=== PATIENT | female | born 1940 | race Caucasian/White ===

== ENCOUNTER → 2020-12-03 | Outpatient (CLI) | payer MEDICARE, BC ==
--- NOTE | 2020-12-03 13:26 | CARD ---
MR#: [id number] Date of Study: 12/03/2020 Ordering Physician: ESPERANZA MARTINI, Referring Physician: ESPERANZA MARTINI, Tech: Pinky Juarez [facility] APPROVED REPORT EXAM: Two-dimensional and M-mode echocardiogram with Doppler and color Doppler. Other Information Quality : AverageHR: 76bpm Rhythm : NSR INDICATION Atrial Fibrillation RISK FACTORS Hypertension 2D DIMENSIONS RVDd4.3 (2.9-3.5cm)Left Atrium(2D)5.2 (1.6-4.0cm) IVSd0.9 (0.7-1.1cm)Aortic Root(2D)3.0 (2.0-3.7cm) LVDd5.9 (3.9-5.9cm)LVOT Diameter2.0 (1.8-2.4cm) PWd1.1 (0.7-1.1cm)LVDs4.2 (2.5-4.0cm) FS (%) 28.1 %SV91.5 ml Aortic Valve AoV Peak Kadeem.186.2cm/sAoV VTI40.8cm AO Peak GR.13.9mmHgLVOT Peak Kadeem.123.0cm/s AO Mean GR.6mmHgAVA (VMAX)1.99cm2 Mitral Valve MV E Hsrjavwa169.2cm/s Pulmonary Valve PV Peak Mwlmnpaw76.1cm/s Tricuspid Valve TR P. Zjlapxxw404py/sTR Peak Gr.40mmHg LEFT VENTRICLE The Left Ventricle is mildly dilated. There is normal left ventricular wall thickness. The systolic f unction is moderately impaired. Estimated ejection fraction is 35%. There is global hypokinesis of th e left ventricle. RIGHT VENTRICLE The right ventricle is normal size. There is normal right ventricular wall thickness. Systolic functi on is borderline reduced. ATRIA The left atrium is severely dilated. The right atrium is severely dilated. Possible PFO displayed wit h color doppler. AORTIC VALVE The aortic valve is normal in structure and function. Doppler and Color Flow revealed no significant aortic regurgitation. There is no significant aortic valvular stenosis. MITRAL VALVE The mitral valve is normal in structure and function. There is no evidence of mitral valve prolapse. There is no mitral valve stenosis. Doppler and Color-flow revealed moderate mitral regurgitation. TRICUSPID VALVE The tricuspid valve is normal in structure and function. Doppler and Color Flow revealed moderate tri cuspid regurgitation. Estimated PAP 55 mmHg. There is no tricuspid valve stenosis. PULMONIC VALVE The pulmonary valve is normal in structure and function. Doppler and Color Flow revealed trace pulmon ic valvular regurgitation. GREAT VESSELS The aortic root is normal in size. The ascending aorta is normal in size. The IVC is dilated and ryan apses <50% with inspiration. PERICARDIAL EFFUSION There is no evidence of significant pericardial effusion. Critical Notification Critical Value: No <Conclusion> The Left Ventricle is mildly dilated. The systolic function is moderately impaired. Estimated ejection fraction is 35%. There is global hypokinesis of the left ventricle. Possible PFO displayed with color doppler. Doppler and Color Flow revealed no significant aortic regurgitation. There is no significant aortic valvular stenosis. Doppler and Color-flow revealed moderate mitral regurgitation. Doppler and Color Flow revealed moderate tricuspid regurgitation. Estimated PAP 55 mmHg. Signed by : Dick Fritz MD Electronically Approved : 12/03/2020 13:26:24
== END ==
LOC: ECHO 08:42
PROVIDERS: ATTEND Internal Medicine
DX: I08.1 Rheumatic disorders of both mitral and tricuspid valves (principal); I48.91 Unspecified atrial fibrillation; I10 Essential (primary) hypertension; E78.00 Pure hypercholesterolemia, unspecified; M79.89 Other specified soft tissue disorders; Z79.01 Long term (current) use of anticoagulants
CPT/HCPCS: 93306

== ENCOUNTER 2021-04-07 07:20 | Inpatient (IN) | payer MEDICARE, BC ==
[2021-04-07] VITALS (29 sets, daily range): BP systolic 180–221; BP diastolic 58–105
[~2021-04-07] VITALS: Ht 175.3 cm; Wt 106.3 kg
[2021-04-07] MEDS ORDERED: LIDOCAINE 1% Multi-Dose 20 ML VIAL. ONE (07:47)
[2021-04-07] MEDS ORDERED: HEPARIN for ARTERIAL LINE 1,500 ML ONE (07:47)
[2021-04-07] MEDS ORDERED: IODIXANOL 320 MG/ML 100 ML VIAL. ONE (07:47)
[2021-04-07] MEDS ORDERED: GABA-585 PO (07:55)
[2021-04-07] MEDS ORDERED: POTA-116 PO (07:55)
[2021-04-07] MEDS ORDERED: UBID100C26 PO (07:55)
[2021-04-07] MEDS ORDERED: METF10007 PO (07:55)
[2021-04-07] MEDS ORDERED: DIGO250T3 PO (07:55)
[2021-04-07] MEDS ORDERED: LOSA100T14 PO (07:55)
[2021-04-07] MEDS ORDERED: DICL75TA PO (07:55)
[2021-04-07] MEDS ORDERED: LOVA40TA2 PO (07:55)
[2021-04-07] MEDS ORDERED: MAGN400T48 PO (07:55)
[2021-04-07] MEDS ORDERED: OMEG1CAP65 PO (07:55)
[2021-04-07] MEDS ORDERED: FURO20TA3 PO (07:55)
[2021-04-07] MEDS ORDERED: DILT120C2 PO (07:55)
[2021-04-07] MEDS ORDERED: VIT1CAPS12 PO (07:55)
[2021-04-07] MEDS ORDERED: CHOL500050 PO (07:55)
[2021-04-07] MEDS ORDERED: GLYB5TAB3 PO (07:55)
[2021-04-07] MEDS ORDERED: WARF6TAB47 PO ×2 (07:55→14:14)
[2021-04-07 07:57] LABS: HEMOGLOBIN 11.3 g/dL (12.0-15.5); RED BLOOD COUNT 3.6 x10^6/uL (3.50-5.40); RED CELL DISTRIBUTION WIDTH 17.2 % (11.5-14.5); WHITE BLOOD COUNT 4.7 x10^3/uL (4.0-11.0)
[2021-04-07 08:07] LABS: PROTHROMBIN TIME PATIENT 20.6 SEC (11.7-14.0)
[2021-04-07] MEDS ORDERED: HEPARIN for IV BOLUS 10,000 UNIT/10 ML VIAL. ONE (08:08)
[2021-04-07] MEDS ORDERED: MIDAZOLAM HCL/PF 2 MG/2 ML VIAL. ONE (08:08)
[2021-04-07] MEDS ORDERED: VERAPAMIL 5 MG/2 ML VIAL. ONE (08:08)
[2021-04-07] MEDS ORDERED: NITROGLYCERIN 200 MCG/2 ML SYRINGE FOR CATH/VASC LAB. ONE ×2 (08:08→09:30)
[2021-04-07] MEDS ORDERED: fentaNYL PF VIAL 100 MCG/2 ML VIAL ONE (08:08)
[2021-04-07] MEDS ORDERED: LIDOCAINE 1% PF 2 ML VIAL. INJ ONE (08:15)
[2021-04-07] MEDS ORDERED: NITROGLYCERIN 200 MCG/2 ML SYRINGE FOR CATH/VASC LAB. IART ONE (08:15)
[2021-04-07] MEDS ORDERED: fentaNYL PF VIAL 100 MCG/2 ML VIAL IV ONE (08:15)
[2021-04-07] MEDS ORDERED: HEPARIN for IV BOLUS 10,000 UNIT/10 ML VIAL. IART ONE (08:15)
[2021-04-07] MEDS ORDERED: VERAPAMIL 5 MG/2 ML VIAL. IART ONE (08:15)
[2021-04-07] MEDS ORDERED: IODIXANOL 320 MG/ML 100 ML VIAL. IART ONE (08:15)
[2021-04-07] MEDS ORDERED: MIDAZOLAM HCL/PF 2 MG/2 ML VIAL. IV ONE (08:15)
[2021-04-07] MEDS ORDERED: LIDOCAINE 1% Multi-Dose 20 ML VIAL. INJ ONE (08:15)
[2021-04-07 08:18] LABS: CALCIUM 9.3 mg/dL (8.5-10.1); CREATININE 1.1 mg/dL (0.6-1.0); POTASSIUM 4.2 mmol/L (3.5-5.1)
[2021-04-07] MEDS ORDERED: CONTRAST GIVEN. MC PRN (08:30)
--- NOTE | 2021-04-07 09:06 | PDOC ---
MODERATE SEDATION ASSESSMENT RISKS/ALTERNATIVES Risks/Alternatives Risks and alternatives of this type of sedation and procedure discussed with: RISK/ALTERNATIVES: Patient H & P ON CHART H & P H & P on chart and reviewed for co-morbid conditions and appropriate labs. H&P ON CHART: Yes STATUS PREG STATUS ASSESSED: N/A MEDS/ALLERGIES REVIEWED Meds/Allergies Reviewed Medications and Allergies including time and route of recently administered narcotics and sedatives. MEDS/ALLERGIES REVIEWED: No ASA RATING ASA RATING: II AIRWAY ASSESSMENT Airway Assessment Airway patency, oral function limitations, presence of caps, crowns, dentures, partials, and ability to extend neck assessed. AIRWAY ASSESSMENT: Yes MALLAMPATI SCORE MALLAMPATI SCORE: II PRE-SEDATION ASSESSMENT PRE-SEDATION ASSESSMENT: Yes YESSI MACHUCA MD Apr 07, 2021 09:06
[2021-04-07] MEDS ORDERED: LABETALOL 20 MG/4 ML DISP.SYRIN. IVP ONE ×2 (09:55→10:00)
[2021-04-07] MEDS ORDERED: FUROSEMIDE 100 MG/10 ML VIAL. ONE (09:55)
[2021-04-07] MEDS ORDERED: FUROSEMIDE 40 MG/4 ML VIAL. IVP ONE (10:00)
--- NOTE | 2021-04-07 10:29 | CARD ---
MR#: [id number] Date of Study: 04/07/2021 Ordering Physician: YESSI MACHUCA, Referring Physician: YESSI MACHUCA, Tech: RT Carmine(R)() APPROVED REPORT Technologist: RT Carmine(R)() Nurse: Elvira Main RN Procedure(s) performed: MODERATE SEDATION TIME: 60 MINUTES FLUORO TIME: 8.7 MIN DOSE: 72.2 GYCM2 CONTRAST: 94CC VISI Ultrasound guided right groin common femoral vein access RHC, LHC, Coronary angiography iFR of the LM/LAD [facility] Clinical Frailty Scale [facility] Clinical Frailty Scale: Moderately Frail Heart Failure Heart Failure: Yes If Yes, Newly Diagnosed: Yes If Yes, HF Type: Diastolic Systolic If Yes, NYHA Class: Class III CASE TECHNIQUE IV conscious sedation was used throughout procedure with appropriate monitoring and was performed in the presence of a registered nurse who was an independent trained observer other than the physician p erforming the procedure. During this case, Fluoroscopy and low osmolar contrast were used for imaging . Specimen(s) Removed: N/A Estimated Blood loss: 30 cc's. PROCEDURE NARRATIVE Clinical information: 80-year-old woman who comes into the Docent Coordinator for a planned right and left heart catheterization in t he setting of new onset systolic heart failure. Patient has pertinent medical history including atri al fibrillation, left bundle branch block, hypertension and morbid obesity. Procedure details: After appropriate informed consent the right wrist and right groin were prepped and draped in usual s terile fashion. Under 1% lidocaine local anesthesia a 6 Namibian sheath was placed in the right radial artery via the Seldinger technique. Next, under fluoroscopic and ultrasound guidance a 5 [place]ibian she ath was placed in the right common femoral vein via the modified Seldinger technique. A image has be en stored in the PACS system. Next, diagnostic angiography was performed with a 6 [place]ian TIG cathete r. Left ventricular end-diastolic pressure was obtained with a TIG catheter and a pullback was perfo rmed. Next, a 5 [place]ibian PA catheter was advanced to the right heart chambers and pressures and satura tions were obtained. Findings: RA 19 mmHg RV 99/4/19 PA 94/27/58 Wedge unable to be obtained LVEDP 18 mmHg No LV to aortic pullback gradient FA sat 92% PA sat 61% Chhaya cardiac output 4.3, Chhaya cardiac index 1.9 Coronary angiography: Left main is a large-caliber vessel with a distal eccentric 40-50% stenosis LAD is a moderate caliber vessel with mild luminal irregularities. Left circumflex is a small caliber nondominant vessel with an ostial 90% stenosis RCA is a large caliber dominant vessel with mild diffuse irregularities of up to 40% in the midsegmen t. RPDA and RPL are moderate to large caliber vessels with mild luminal irregularities Interventional technique: Heparin was used for anticoagulation. Next, through a 6 [place]ian EBU 3.5 guide catheter a IFR wire was advanced from the left main into the distal LAD after appropriate normalization. An IFR value of 0. 93 was obtained. Post IFR angiography demonstrated no evidence of guide or wire related complication s. At case completion the right groin sheath was removed and hemostasis was achieved via manual comp ression. The right radial sheath was removed and hemostasis was achieved with a Terumo radial band. No acute complications. Conclusion 1. Biventricular pressure overload 2. Severe pulmonary hypertension, mean PA 58 mmHg, likely group 2 left-sided 3. Low cardiac output with an index of 1.9 4. Three-vessel noncritical coronary artery disease with left main involvement. 5. Negative IFR of the left main and LAD stenosis. Recommendations 1. We will plan admission to the hospital for optimization of volume status. 2. Obtain JATINDER for further delineation of valvular disease 3. After she is euvolemic we will repeat her right heart cath and see if she has any improvement and consider referral for further treatment at [facility] for pulmonary hypertension. 4. Consider SLAB DEPILER OPERATOR-D therapy depending on improvement with medical therapy. 5. Currently the patient does not have angina and I have lower suspicion that her cardiomyopathy is related to her coronary disease. Physiologic testing is negative for the left main lesion. Continue medical therapy. Signed by : Yessi Machuca, Electronically Approved : 04/07/2021 10:28:47
--- NOTE | 2021-04-07 10:42 | PDOC1 ---
History and Physical Visit Information Date of Admission: 04/07/2021 History of Present Illness History of Present Illness Hansa is a pleasant 80-year-old woman who presented to the hospital today for a planned right and left heart catheterization in the setting of exertional dyspnea, right-sided heart failure, uncontrolled hypertension and LV dysfunction. Today she underwent a successful right and left heart catheterization and evaluation of coronary artery disease. The patient has severe exertional dyspnea and classic symptoms of right-sided heart failure. She would be deemed NYHA class III. She has low cardiac output and indices suggestive of cardiogenic shock on her right heart catheterization parameters. We will plan for admission to the hospital for diuresis and optimization of medical therapy. Cardiac Risk Factors Comments 1 coronary artery disease, three-vessel 2. Hypertension 3. Chronic atrial fibrillation 4. Left bundle branch block 5. Severe secondary pulmonary hypertension, see results below 6. History of medication noncompliance Past Surgical History Comments No significant surgical history Current Medications Current Medications Current Medications Fentanyl Citrate (Fentanyl 2ml Vial) 100 mcg 1X ONCE IV Last administered on 04/07/21at 09:02; Start 04/07/21 at 08:15; Stop 04/07/21 at 08:18; Status DC Fentanyl Citrate (Fentanyl 2ml Vial) 100 mcg STK-MED ONCE .ROUTE ; Start 04/07/21 at 08:08; Stop 04/07/21 at 08:08; Status DC Furosemide (Lasix) 40 mg 1X ONCE IVP ; Start 04/07/21 at 10:00; Stop 04/07/21 at 10:07; Status DC Furosemide (Lasix) 100 mg STK-MED ONCE .ROUTE ; Start 04/07/21 at 09:55; Stop 04/07/21 at 09:55; Status DC Heparin Sodium (Porcine) (Heparin Sodium) 2,500 unit 1X ONCE IART Last administered on 04/07/21at 09:10; Start 04/07/21 at 08:15; Stop 04/07/21 at 08:18; Status DC Heparin Sodium (Porcine) (Heparin Sodium) 10,000 unit STK-MED ONCE .ROUTE ; Start 04/07/21 at 08:08; Stop 04/07/21 at 08:08; Status DC Heparin Sodium/ Sodium Chloride 1,500 ml @ As Directed STK-MED ONCE .ROUTE ; Start 04/07/21 at 07:47; Stop 04/07/21 at 07:48; Status DC Heparin Sodium/ Sodium Chloride (HEPARIN for ARTERIAL LINE FLUSH) 1,000 unit 1X ONCE IART Last administered on 04/07/21at 08:15; Start 04/07/21 at 08:15; Stop 04/07/21 at 08:18; Status DC Heparin Sodium/ Sodium Chloride (HEPARIN for ARTERIAL LINE FLUSH) 1,000 unit 1X ONCE IART Last administered on 04/07/21at 08:15; Start 04/07/21 at 08:15; Stop 04/07/21 at 08:18; Status DC Info (CONTRAST GIVEN -- Rx MONITORING) 1 each PRN DAILY PRN MC SEE COMMENTS; Start 04/07/21 at 08:30; Stop 04/09/21 at 08:29 Iodixanol (Visipaque 320) 100 ml 1X ONCE IART Last administered on 04/07/21at 09:43; Start 04/07/21 at 08:15; Stop 04/07/21 at 08:18; Status DC Iodixanol (Visipaque 320) 100 ml STK-MED ONCE .ROUTE ; Start 04/07/21 at 07:47; Stop 04/07/21 at 07:47; Status DC Labetalol HCl (Normodyne Iv Push) 20 mg 1X ONCE IVP Last administered on 04/07/21at 10:00; Start 04/07/21 at 10:00; Stop 04/07/21 at 10:07; Status DC Labetalol HCl (Normodyne Iv Push) 20 mg STK-MED ONCE IVP ; Start 04/07/21 at 0 9:55; Stop 04/07/21 at 09:55; Status DC Lidocaine HCl (Lidocaine 1% 20ml Vial) 20 ml 1X ONCE INJ Last administered on 04/07/21at 09:22; Start 04/07/21 at 08:15; Stop 04/07/21 at 08:18; Status DC Lidocaine HCl (Lidocaine 1% 20ml Vial) 20 ml STK-MED ONCE .ROUTE ; Start 04/07/21 at 07:47; Stop 04/07/21 at 07:47; Status DC Lidocaine HCl (Xylocaine-Mpf 1% 2ml Vial) 2 ml 1X ONCE INJ Last administered on 04/07/21at 09:08; Start 04/07/21 at 08:15; Stop 04/07/21 at 08:18; Status DC Midazolam HCl (Versed) 2 mg 1X ONCE IV Last administered on 04/07/21at 09:02; Start 04/07/21 at 08:15; Stop 04/07/21 at 08:18; Status DC Midazolam HCl (Versed) 2 mg STK-MED ONCE .ROUTE ; Start 04/07/21 at 08:08; Stop 04/07/21 at 08:08; Status DC Nitroglycerin (Nitroglycerin) 200 mcg 1X ONCE IART Last administered on 04/07/21at 09:10; Start 04/07/21 at 08:15; Stop 04/07/21 at 08:18; Status DC Nitroglycerin (Nitroglycerin) 200 mcg STK-MED ONCE .ROUTE ; Start 04/07/21 at 08:08; Stop 04/07/21 at 08:08; Status DC Nitroglycerin (Nitroglycerin) 200 mcg STK-MED ONCE .ROUTE ; Start 04/07/21 at 09:30; Stop 04/07/21 at 09:30; Status DC Verapamil HCl (Verapamil) 2.5 mg 1X ONCE IART Last administered on 04/07/21at 09:10; Start 04/07/21 at 08:15; Stop 04/07/21 at 08:18; Status DC Verapamil HCl (Verapamil) 5 mg STK-MED ONCE .ROUTE ; Start 04/07/21 at 08:08; Stop 04/07/21 at 08:08; Status DC Allergies Allergies Allergies Coded Allergies Type Severity Reaction Last Updated Verified No Known Drug Allergies 04/07/21 No Social History Comments No alcohol, tobacco or illicit drug use. She has social support through friends. No family. Family History Comments Noncontributory ROS Review of System Negative for 10 out of 14 systems reviewed unless otherwise mentioned above in HPI Physical Exam Comments The patient appeared well nourished and normally developed. Head exam is unremarkable. No scleral icterus or corneal arcus noted. Neck is without jugular venous distension, thyromegaly, or carotid bruits. Carotid upstrokes are brisk bilaterally. Lungs are notable for bilateral rales. Cardiac exam reveals the PMI to be normally sized and situated. Rhythm is irregular. First and second heart sounds normal. +TR murmur. Abdominal exam reveals normal bowel sounds, no masses, no organomegaly and no aortic enlargement. Extremities are nnotable for 3+ edema. 1+ pedal and 2+ radial pulses. Msk: No traumua Neuro: No focal deficits Vitals VITALS Vital Signs Date Time Temp Pulse Resp B/P (MAP) Pulse Ox O2 Delivery O2 Flow Rate FiO2 04/07/21 10:07 48 20 90 Nasal Cannula 2.0 04/07/21 08:23 98.3 207/83 (124) 98.3 Labs Labs Laboratory Tests Test 04/07/21 07:48 White Blood Count 4.7 x10^3/uL (4.0-11.0) Red Blood Count 3.60 x10^6/uL (3.50-5.40) Hemoglobin 11.3 g/dL (12.0-15.5) Hematocrit 34.0 % (36.0-47.0) Mean Corpuscular Volume 94 fL (79-100) Mean Corpuscular Hemoglobin 31 pg (25-35) Mean Corpuscular Hemoglobin Concent 33 g/dL (31-37) Red Cell Distribution Width 17.2 % (11.5-14.5) Platelet Count 154 x10^3/uL (140-400) Prothrombin Time 20.6 SEC (11.7-14.0) Prothromb Time International Ratio 1.8 (0.8-1.1) Sodium Level 142 mmol/L (136-145) Potassium Level 4.2 mmol/L (3.5-5.1) Chloride Level 108 mmol/L (98-107) Carbon Dioxide Level 23 mmol/L (21-32) Anion Gap 11 (6-14) Blood Urea Nitrogen 25 mg/dL (7-20) Creatinine 1.1 mg/dL (0.6-1.0) Estimated GFR (Cockcroft-Gault) 48.0 Glucose Level 112 mg/dL (70-99) Calcium Level 9.3 mg/dL (8.5-10.1) Laboratory Tests Test 04/07/21 07:48 White Blood Count 4.7 x10^3/uL (4.0-11.0) Red Blood Count 3.60 x10^6/uL (3.50-5.40) Hemoglobin 11.3 g/dL (12.0-15.5) Hematocrit 34.0 % (36.0-47.0) Mean Corpuscular Volume 94 fL (79-100) Mean Corpuscular Hemoglobin 31 pg (25-35) Mean Corpuscular Hemoglobin Concent 33 g/dL (31-37) Red Cell Distribution Width 17.2 % (11.5-14.5) Platelet Count 154 x10^3/uL (140-400) Prothrombin Time 20.6 SEC (11.7-14.0) Prothromb Time International Ratio 1.8 (0.8-1.1) Sodium Level 142 mmol/L (136-145) Potassium Level 4.2 mmol/L (3.5-5.1) Chloride Level 108 mmol/L (98-107) Carbon Dioxide Level 23 mmol/L (21-32) Anion Gap 11 (6-14) Blood Urea Nitrogen 25 mg/dL (7-20) Creatinine 1.1 mg/dL (0.6-1.0) Estimated GFR (Cockcroft-Gault) 48.0 Glucose Level 112 mg/dL (70-99) Calcium Level 9.3 mg/dL (8.5-10.1) Images Images Right heart catheterization reveals severe biventricular pressure overload, cardiogenic shock and right-sided heart failure with pulmonary hypertension Coronary angiography reveals three-vessel coronary artery disease with distal left main stenosis which appears to be physiologically insignificant based on IFR testing ECG Comments Atrial fibrillation with a left bundle branch block VTE Prophylaxis Ordered VTE Prophylaxis Devices: No VTE Pharmacological Prophylaxi: No Assessment/Plan Assessment/Plan 1. Acute on chronic systolic and diastolic heart failure 2. Three-vessel noncritical coronary artery disease with negative IFR of the left main 3. Chronic rate controlled atrial fibrillation with a left bundle branch block 4. Uncontrolled hypertension with systolic blood pressure above 200 5. Chronic kidney disease with a GFR of 45 6. Right-sided heart failure with severe pulmonary hypertension, mean PA pressure of 58 7. Probable at least moderate tricuspid regurgitation Plan: 1. We will plan for admission for IV diuretics, likely initiation of inotropic support with milrinone and consider JATINDER for further delineation of her valvular heart disease Justicifation of Admission Dx: Justifications for Admission: Justification of Admission Dx: Yes CHF: Hemodynamic Instability YESSI MACHUCA MD Apr 07, 2021 10:42
[2021-04-07] MEDS ORDERED: NITROGLYCERIN SUBLINGUAL 0.4 MG BOTTLE OF 25. SL PRN (10:45)
[2021-04-07] MEDS ORDERED: LIDOCAINE 2% 100 MG/5 ML SYRINGE. IV PRN (10:45)
[2021-04-07] MEDS ORDERED: MILRINONE 10 MG/10 ML VIAL. IV ONE (10:45)
[2021-04-07] MEDS ORDERED: 0.9 % SODIUM CHLORIDE 10 ML DISP.SYRIN. IV PRN (10:45)
[2021-04-07] MEDS ORDERED: ATROPINE 0.5 MG/5 ML DISP.SYRINGE. IV PRN (10:45)
[2021-04-07] MEDS ORDERED: AMIODARONE 150 MG in IV DEXTROSE 5% 100ML 100 ML IV PRN (10:45)
--- NOTE | 2021-04-07 11:46 | EKG ---
[facility] [address] [place] [address] Test Date: 2021-04-07 Test Time: 11:44:13 Pat Name: POLO VIDAL Department: Room: Gender: F Jail Keeper: RAMIREZ : 1940 Requested By: YESSI MACHUCA Order Number: [id number] Reading MD: Kodak Nicole Measurements Intervals [place] Rate: 59 P: AR: QRS: -48 QRSD: 154 T: 107 QT: 444 QTc: 444 Interpretive Statements ATRIAL FIBRILLATION ABNORMAL LEFT AXIS DEVIATION LEFT BUNDLE BRANCH BLOCK ABNORMAL ECG RI6.02 No previous ECG available for comparison Electronically Signed On 04-08-2021 13:29:14 CDT by Kodak Nicole
[2021-04-07] MEDS: MILRINONE 20MG/100ML PREMIX 100 ML IV PRN (11:50)
[2021-04-07] MEDS ORDERED: hydrALAZINE 20 MG/ML VIAL. ONE (11:58)
[2021-04-07] MEDS ORDERED: hydrALAZINE 20 MG/ML VIAL. IVP ONE (12:00)
--- NOTE | 2021-04-07 12:30 | NUR ---
MD aware of patient's HTN. Orders received. 20mg Hydralazine given. Labetalol previously given in experimental machining lab manager. See VS. Will continue to monitor.
--- NOTE | 2021-04-07 13:30 | NUR ---
Right radial dressing changed, no complications and armboard reapplied. Pt. tolerated well.
--- NOTE | 2021-04-07 14:00 | NUR ---
Patient arrived to room 654 via wheelchair after cath at 1400. Patient A&OX4. No complaints of pain. R groin & R radial cath site CDI, warm, soft, no bleeding. The patient, POLO VIDAL, 80 y/o, F admitted by YESSI MACHUCA MD, was given written information regarding hospital policies, unit procedures and contact persons. Valuables were checked and noted. WAGNER Johns helped with admission questions. Will continue to monitor.
--- NOTE | 2021-04-07 14:02 | NUR ---
Patient transferred to room 654 via wheelchair. Report given to Faye EDWARD via phone. Patient's R groin and R femoral access site are clean dry, intact. No bleeding. All belongings taken w/ patient at time of transfer. Patient's family member's aware of admission, spoke with . Ed max, orders received/medications given for HTN. Faye EDWARD states she will followup with Dr. Young after current case or FULL FASHIONED GARMENT KNITTER if HTN does not resolve. See EMAR, VS.
[2021-04-07] MEDS ORDERED: hydrALAZINE 20 MG/ML VIAL. IVP PRN (16:15)
[2021-04-07] MEDS ORDERED: ATORVASTATIN CALCIUM 20 MG TABLET PO SCH (21:00)
[2021-04-07] MEDS: hydrALAZINE 20 MG/ML VIAL. IVP PRN (21:21)
[2021-04-08] VITALS (19 sets, daily range): BP systolic 158–204; BP diastolic 54–81
[2021-04-08] MEDS: hydrALAZINE 20 MG/ML VIAL. IVP PRN ×3 (01:56→21:28)
[2021-04-08] MEDS: MILRINONE 20MG/100ML PREMIX 100 ML IV PRN (05:35)
[2021-04-08 07:35] LABS: HEMOGLOBIN 10.7 g/dL (12.0-15.5); RED BLOOD COUNT 3.52 x10^6/uL (3.50-5.40); RED CELL DISTRIBUTION WIDTH 17.1 % (11.5-14.5); WHITE BLOOD COUNT 6.5 x10^3/uL (4.0-11.0)
[2021-04-08 08:03] LABS: ALBUMIN 3.1 g/dL (3.4-5.0); CREATININE 0.9 mg/dL (0.6-1.0); DIRECT BILIRUBIN 0.5 mg/dL (0.0-0.2); GFR 60.6; POTASSIUM 3.7 mmol/L (3.5-5.1); TOTAL BILIRUBIN 2.1 mg/dL (0.2-1.0)
[2021-04-08 08:05] LABS: CHOLESTEROL/HDL RATIO 2.5
[2021-04-08] MEDS: SPIRONOLACTONE 25 MG TABLET PO SCH (09:00)
[2021-04-08] MEDS: ASPIRIN ENTERIC COATED 81 MG TABLET.DR. PO SCH (09:00)
[2021-04-08] MEDS: METOPROLOL SUCC 24HR ER 25 MG TAB.ER.24H. PO SCH (09:01)
[2021-04-08] MEDS: FUROSEMIDE 40 MG/4 ML VIAL. IVP SCH (09:09)
[2021-04-08] MEDS: LISINOPRIL 20 MG TABLET PO SCH (11:39)
--- NOTE | 2021-04-08 11:44 | PDOC ---
KB STODDARD VENDING SUPERVISOR 04/08/21 1144: CARDIO Progress Notes Date and Time Date of Service 04/08/2021 Time of Evaluation 1115 Subjective Subjective: No Chest Pain, No shortness of breath, No Palpitations Vitals Vitals Vital Signs Date Time Temp Pulse Resp B/P (MAP) Pulse Ox O2 Delivery O2 Flow Rate FiO2 04/08/21 11:00 97.9 73 17 204/70 (114) 95 Room Air 97.9 04/07/21 13:30 2.0 Weight Weight [ ] Input and Output Intake and Output Intake and Output 04/08/21 07:00 Intake Total 1380 ml Output Total 3930 ml Balance -2550 ml Intake Oral 1380 ml Output Urine Total 3930 ml Laboratory Labs Laboratory Tests Test 04/07/21 17:30 04/07/21 20:07 04/08/21 05:35 04/08/21 08:09 Glucose (Fingerstick) 159 mg/dL (70-99) 146 mg/dL (70-99) 150 mg/dL (70-99) White Blood Count 6.5 x10^3/uL (4.0-11.0) Red Blood Count 3.52 x10^6/uL (3.50-5.40) Hemoglobin 10.7 g/dL (12.0-15.5) Hematocrit 33.0 % (36.0-47.0) Mean Corpuscular Volume 94 fL (79-100) Mean Corpuscular Hemoglobin 30 pg (25-35) Mean Corpuscular Hemoglobin Concent 32 g/dL (31-37) Red Cell Distribution Width 17.1 % (11.5-14.5) Platelet Count 146 x10^3/uL (140-400) Sodium Level 142 mmol/L (136-145) Potassium Level 3.7 mmol/L (3.5-5.1) Chloride Level 105 mmol/L (98-107) Carbon Dioxide Level 25 mmol/L (21-32) Anion Gap 12 (6-14) Blood Urea Nitrogen 20 mg/dL (7-20) Creatinine 0.9 mg/dL (0.6-1.0) Estimated GFR (Cockcroft-Gault) 60.6 Glucose Level 119 mg/dL (70-99) Calcium Level 9.0 mg/dL (8.5-10.1) Total Bilirubin 2.1 mg/dL (0.2-1.0) Direct Bilirubin 0.5 mg/dL (0.0-0.2) Aspartate Amino Transf (AST/SGOT) 23 U/L (15-37) Alanine Aminotransferase (ALT/SGPT) 21 U/L (14-59) Alkaline Phosphatase 113 U/L (46-116) Total Protein 7.0 g/dL (6.4-8.2) Albumin 3.1 g/dL (3.4-5.0) Triglycerides Level 54 mg/dL (0-150) Cholesterol Level 106 mg/dL (0-200) LDL Cholesterol, Calculated 52 mg/dL (0-100) VLDL Cholesterol, Calculated 11 mg/dL (0-40) Non-HDL Cholesterol Calculated 63 mg/dL (0-129) HDL Cholesterol 43 mg/dL (40-60) Cholesterol/HDL Ratio 2.5 Test 04/08/21 10:42 Glucose (Fingerstick) 143 mg/dL (70-99) Physical Exam HEENT: Neck Supple W Full Motion Chest: Symmetric LUNGS: Other (diminished bases) Heart: irregularly irregular (AFIB) Abdomen: Soft N/T Extremities: No Calf Tenderness, Other (3+ bilateral pedal edema) Neurology: alert, oriented, follow commands Assessment Assessment 1. Acute on chronic systolic and diastolic heart failure; appears compensated 2. Three-vessel noncritical coronary artery disease with negative IFR of the left main 3. Chronic AFIB/LBBB: rate controlled 4. HTN urgency 5. CKD3 6. Right-sided heart failure with severe pulmonary hypertension, mean PA pressure of 58 7. Probable at least moderate tricuspid regurgitation 8. NICM; EF at 35% recommendations 1. DC Milrinone. Lasix therapy. Consider JATINDER for further delineation of her valvular heart disease 2. ASA and statin. Start on lisinopril. Continue aldactone, toprol. Will increase per BP trend. Continue optimization of HF regimen per GDMT Hydralazine IV PRN 3. TOLL LINEMAN-D as an outpt 4. Check INR, Restart coumadin for stroke prevention Justicifation of Admission Dx: Justifications for Admission: Justification of Admission Dx: Yes CHF: Hemodynamic Instability YESSI MACHUCA MD 04/08/21 1634: CARDIO Progress Notes Plan Plan Patient seen and examined. Agree with above nurse practitioner note. Continue diuresis. Monitor renal function. Initiate lisinopril and metoprolol XL therapies. Restart her anticoagulation. I implored to the patient to consider obtaining part D insurance for medical therapy. Given her cardiac shock and persistent volume overload and exertional dyspnea she merits another 24 hours in the hospital for continued intravenous diuresis. Continue hydralazine for now for blood pressure control. Tomorrow we will likely initiate amlodipine therapy if she is still hypertensive and then consider other agents such as clonidine. KB STODDARD APRN Apr 08, 2021 11:44 YESSI MACHUCA MD Apr 08, 2021 16:34
[2021-04-08 12:57] LABS: PROTHROMBIN TIME PATIENT 16.2 SEC (11.7-14.0)
--- NOTE | 2021-04-08 13:15 | NUR ---
Pharmacy Warfarin Dosing Note S:Pharmacy consulted to assist with anticoagulation therapy started with target INR: 2 -3 O:POLO VIDAL is a 80 year old F with Atrial Fibrillation LABS: Last INR: 1.3 Previous Regimen: warfarin 6 mg daily Drug Interaction Changes: None Ongoing Drug Interactions: n/a A:INR of 1.3 is below desired range. Target range for this patient is: 2 -3 P: Warfarin dose: 6 mg Today at 1600 Bridge Therapy: None Next INR due 04/09/21 Pharmacy anticoagulation service will continue to follow. ROBERT SILVA RPH, 04/08/21 [id number]
[2021-04-08] MEDS ORDERED: FUROSEMIDE 40 MG/4 ML VIAL. IVP ONE (15:00)
[2021-04-08] MEDS ORDERED: WARFARIN 3 MG TABLET. PO ONE (16:00)
[2021-04-09] VITALS (8 sets, daily range): BP systolic 148–229; BP diastolic 53–95
[2021-04-09] MEDS: hydrALAZINE 20 MG/ML VIAL. IVP PRN ×3 (03:20→15:09)
[2021-04-09 04:59] LABS: PROTHROMBIN TIME PATIENT 16.4 SEC (11.7-14.0)
[2021-04-09 05:11] LABS: CREATININE 0.9 mg/dL (0.6-1.0); GFR 60.6; MAGNESIUM 1.7 mg/dL (1.8-2.4); POTASSIUM 3.3 mmol/L (3.5-5.1)
--- NOTE | 2021-04-09 07:32 | NUR ---
Pharmacy Warfarin Dosing Note S:Pharmacy consulted to assist with anticoagulation therapy started with target INR: 2 -3 O:POLO VIDAL is a 80 year old F with Atrial Fibrillation LABS: Last INR: 1.3 Last HGB: 10.7 Last HCT: 33 Last PLT: 146 Last dose of 6 mg given on 04/08/21 at 1614 Previous Regimen: warfarin 6 mg daily Drug Interaction Changes: None Ongoing Drug Interactions: n/a A:INR of 1.3 is below desired range. Target range for this patient is: 2 -3 P: Warfarin dose: 6 mg Today at 1600 Bridge Therapy: None Next INR due 04/10/21 Pharmacy anticoagulation service will continue to follow. ROBERT SILVA [facility], 04/09/21 [id number]
[2021-04-09] MEDS: FUROSEMIDE 40 MG/4 ML VIAL. IVP SCH (08:37)
[2021-04-09] MEDS: SPIRONOLACTONE 25 MG TABLET PO SCH (08:38)
[2021-04-09] MEDS: METOPROLOL SUCC 24HR ER 25 MG TAB.ER.24H. PO SCH (08:38)
[2021-04-09] MEDS: ASPIRIN ENTERIC COATED 81 MG TABLET.DR. PO SCH (08:38)
[2021-04-09] MEDS: LISINOPRIL 20 MG TABLET PO SCH (08:39)
--- NOTE | 2021-04-09 13:17 | PDOC ---
PROGRESS NOTES Date of Service DATE: 04/09/21 TIME: 13:14 Subjective Subjective Patient seen and examined Objective Objective Vital Signs Date Time Temp Pulse Resp B/P (MAP) Pulse Ox O2 Delivery O2 Flow Rate FiO2 04/09/21 11:59 74 182/78 (112) 04/09/21 11:10 98.6 18 95 Room Air 98.6 04/09/21 08:00 2.0 Intake and Output 04/09/21 07:00 Intake Total 1120 ml Output Total 1400 ml Balance -280 ml Intake Oral 1120 ml Output Urine Total 1400 ml Physical Exam Abdomen: Normal bowel sounds Heart: Regular rate General: No acute distress Lungs: Other (Mildly decreased breath sounds) Assessment Assessment Acute on chronic systolic and diastolic heart failure; appears compensated Three-vessel noncritical coronary artery disease with negative IFR of the left main. Continue medical treatment. Chronic AFIB/LBBB: rate controlled. Coumadin restarted. HTN. Blood pressure still elevated. We will add Norvasc and monitor. CKD3. Monitoring lab. 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 Off milrinone. Comment Review of Relevant I have reviewed the following items taylor (where applicable) has been applied. Labs Laboratory Tests Test 04/07/21 17:30 04/07/21 20:07 04/08/21 05:35 04/08/21 08:09 Glucose (Fingerstick) 159 mg/dL (70-99) 146 mg/dL (70-99) 150 mg/dL (70-99) White Blood Count 6.5 x10^3/uL (4.0-11.0) Red Blood Count 3.52 x10^6/uL (3.50-5.40) Hemoglobin 10.7 g/dL (12.0-15.5) Hematocrit 33.0 % (36.0-47.0) Mean Corpuscular Volume 94 fL (79-100) Mean Corpuscular Hemoglobin 30 pg (25-35) Mean Corpuscular Hemoglobin Concent 32 g/dL (31-37) Red Cell Distribution Width 17.1 % (11.5-14.5) Platelet Count 146 x10^3/uL (140-400) Sodium Level 142 mmol/L (136-145) Potassium Level 3.7 mmol/L (3.5-5.1) Chloride Level 105 mmol/L (98-107) Carbon Dioxide Level 25 mmol/L (21-32) Anion Gap 12 (6-14) Blood Urea Nitrogen 20 mg/dL (7-20) Creatinine 0.9 mg/dL (0.6-1.0) Estimated GFR (Cockcroft-Gault) 60.6 Glucose Level 119 mg/dL (70-99) Calcium Level 9.0 mg/dL (8.5-10.1) Total Bilirubin 2.1 mg/dL (0.2-1.0) Direct Bilirubin 0.5 mg/dL (0.0-0.2) Aspartate Amino Transf (AST/SGOT) 23 U/L (15-37) Alanine Aminotransferase (ALT/SGPT) 21 U/L (14-59) Alkaline Phosphatase 113 U/L (46-116) Total Protein 7.0 g/dL (6.4-8.2) Albumin 3.1 g/dL (3.4-5.0) Triglycerides Level 54 mg/dL (0-150) Cholesterol Level 106 mg/dL (0-200) LDL Cholesterol, Calculated 52 mg/dL (0-100) VLDL Cholesterol, Calculated 11 mg/dL (0-40) Non-HDL Cholesterol Calculated 63 mg/dL (0-129) HDL Cholesterol 43 mg/dL (40-60) Cholesterol/HDL Ratio 2.5 Test 04/08/21 10:42 04/08/21 11:25 04/08/21 12:36 04/08/21 16:17 Glucose (Fingerstick) 143 mg/dL (70-99) 129 mg/dL (70-99) SARS-CoV-2 RNA (EFRAIN) Negative (Negative) SARS-CoV-2 Antigen (Rapid) Negative (NEGATIVE) Prothrombin Time 16.2 SEC (11.7-14.0) Prothromb Time International Ratio 1.3 (0.8-1.1) Test 04/08/21 20:34 04/09/21 04:00 04/09/21 07:37 04/09/21 11:40 Glucose (Fingerstick) 173 mg/dL (70-99) 143 mg/dL (70-99) 179 mg/dL (70-99) Prothrombin Time 16.4 SEC (11.7-14.0) Prothromb Time International Ratio 1.3 (0.8-1.1) Sodium Level 138 mmol/L (136-145) Potassium Level 3.3 mmol/L (3.5-5.1) Chloride Level 102 mmol/L (98-107) Carbon Dioxide Level 27 mmol/L (21-32) Anion Gap 9 (6-14) Blood Urea Nitrogen 21 mg/dL (7-20) Creatinine 0.9 mg/dL (0.6-1.0) Estimated GFR (Cockcroft-Gault) 60.6 Glucose Level 130 mg/dL (70-99) Calcium Level 9.0 mg/dL (8.5-10.1) Magnesium Level 1.7 mg/dL (1.8-2.4) Laboratory Tests Test 04/08/21 16:17 04/08/21 20:34 04/09/21 04:00 04/09/21 07:37 Glucose (Fingerstick) 129 mg/dL (70-99) 173 mg/dL (70-99) 143 mg/dL (70-99) Prothrombin Time 16.4 SEC (11.7-14.0) Prothromb Time International Ratio 1.3 (0.8-1.1) Sodium Level 138 mmol/L (136-145) Potassium Level 3.3 mmol/L (3.5-5.1) Chloride Level 102 mmol/L (98-107) Carbon Dioxide Level 27 mmol/L (21-32) Anion Gap 9 (6-14) Blood Urea Nitrogen 21 mg/dL (7-20) Creatinine 0.9 mg/dL (0.6-1.0) Estimated GFR (Cockcroft-Gault) 60.6 Glucose Level 130 mg/dL (70-99) Calcium Level 9.0 mg/dL (8.5-10.1) Magnesium Level 1.7 mg/dL (1.8-2.4) Test 04/09/21 11:40 Glucose (Fingerstick) 179 mg/dL (70-99) Medications Current Medications Iodixanol (Visipaque 320) 100 ml STK-MED ONCE .ROUTE ; Start 04/07/21 at 07:47; Stop 04/07/21 at 07:47; Status DC Lidocaine HCl (Lidocaine 1% 20ml Vial) 20 ml STK-MED ONCE .ROUTE ; Start 04/07/21 at 07:47; Stop 04/07/21 at 07:47; Status DC Heparin Sodium/ Sodium Chloride 1,500 ml @ As Directed STK-MED ONCE .ROUTE ; Start 04/07/21 at 07:47; Stop 04/07/21 at 07:48; Status DC Fentanyl Citrate (Fentanyl 2ml Vial) 100 mcg STK-MED ONCE .ROUTE ; Start 04/07/21 at 08:08; Stop 04/07/21 at 08:08; Status DC Midazolam HCl (Versed) 2 mg STK-MED ONCE .ROUTE ; Start 04/07/21 at 08:08; Stop 04/07/21 at 08:08; Status DC Heparin Sodium (Porcine) (Heparin Sodium) 10,000 unit STK-MED ONCE .ROUTE ; Start 04/07/21 at 08:08; Stop 04/07/21 at 08:08; Status DC Verapamil HCl (Verapamil) 5 mg STK-MED ONCE .ROUTE ; Start 04/07/21 at 08:08; Stop 04/07/21 at 08:08; Status DC Nitroglycerin (Nitroglycerin) 200 mcg STK-MED ONCE .ROUTE ; Start 04/07/21 at 08:08; Stop 04/07/21 at 08:08; Status DC Nitroglycerin (Nitroglycerin) 200 mcg 1X ONCE IART Last administered on 04/07/21at 09:10; Start 04/07/21 at 08:15; Stop 04/07/21 at 08:18; Status DC Verapamil HCl (Verapamil) 2.5 mg 1X ONCE IART Last administered on 04/07/21at 09:10; Start 04/07/21 at 08:15; Stop 04/07/21 at 08:18; Status DC Heparin Sodium (Porcine) (Heparin Sodium) 2,500 unit 1X ONCE IART Last administered on 04/07/21at 09:10; Start 04/07/21 at 08:15; Stop 04/07/21 at 08:18; Status DC Heparin Sodium/ Sodium Chloride (HEPARIN for ARTERIAL LINE FLUSH) 1,000 unit 1X ONCE IART Last administered on 04/07/21at 08:15; Start 04/07/21 at 08:15; St op 04/07/21 at 08:18; Status DC Heparin Sodium/ Sodium Chloride (HEPARIN for ARTERIAL LINE FLUSH) 1,000 unit 1X ONCE IART Last administered on 04/07/21at 08:15; Start 04/07/21 at 08:15; Stop 04/07/21 at 08:18; Status DC Midazolam HCl (Versed) 2 mg 1X ONCE IV Last administered on 04/07/21at 09:02; Start 04/07/21 at 08:15; Stop 04/07/21 at 08:18; Status DC Fentanyl Citrate (Fentanyl 2ml Vial) 100 mcg 1X ONCE IV Last administered on 04/07/21at 09:02; Start 04/07/21 at 08:15; Stop 04/07/21 at 08:18; Status DC Iodixanol (Visipaque 320) 100 ml 1X ONCE IART Last administered on 04/07/21at 09:43; Start 04/07/21 at 08:15; Stop 04/07/21 at 08:18; Status DC Lidocaine HCl (Lidocaine 1% 20ml Vial) 20 ml 1X ONCE INJ Last administered on 04/07/21at 09:22; Start 04/07/21 at 08:15; Stop 04/07/21 at 08:18; Status DC Lidocaine HCl (Xylocaine-Mpf 1% 2ml Vial) 2 ml 1X ONCE INJ Last administered on 04/07/21at 09:08; Start 04/07/21 at 08:15; Stop 04/07/21 at 08:18; Status DC Info (CONTRAST GIVEN -- Rx MONITORING) 1 each PRN DAILY PRN MC SEE COMMENTS; Start 04/07/21 at 08:30; Stop 04/09/21 at 08:29; Status DC Nitroglycerin (Nitroglycerin) 200 mcg STK-MED ONCE .ROUTE ; Start 04/07/21 at 09:30; Stop 04/07/21 at 09:30; Status DC Furosemide (Lasix) 100 mg STK-MED ONCE .ROUTE ; Start 04/07/21 at 09:55; Stop 04/07/21 at 09:55; Status DC Labetalol HCl (Normodyne Iv Push) 20 mg STK-MED ONCE IVP ; Start 04/07/21 at 09:55; Stop 04/07/21 at 09:55; Status DC Labetalol HCl (Normodyne Iv Push) 20 mg 1X ONCE IVP Last administered on 04/07/21at 10:00; Start 04/07/21 at 10:00; Stop 04/07/21 at 10:07; Status DC Furosemide (Lasix) 40 mg 1X ONCE IVP Last administered on 04/07/21at 10:30; Start 04/07/21 at 10:00; Stop 04/07/21 at 10:07; Status DC Sodium Chloride (Normal Saline Flush) 3 ml QSHIFT PRN IV AFTER MEDS AND BLOOD DRAWS; Start 04/07/21 at 10:45; Stop 04/08/21 at 10:44; Status DC Aspirin (Ecotrin) 81 mg DAILYWBKFT PO Last administered on 04/09/21at 08:38; Start 04/08/21 at 08:00 Metoprolol Succinate (Toprol Xl) 25 mg DAILY PO Last administered on 04/09/21at 08:38; Start 04/08/21 at 09:00 Spironolactone (Aldactone) 25 mg DAILY PO Last administered on 04/09/21at 08:38; Start 04/08/21 at 09:00 Atorvastatin Calcium (Lipitor) 40 mg QHS PO Last administered on 04/07/21at 21:18; Start 04/07/21 at 21:00; Stop 04/08/21 at 20:59; Status DC Nitroglycerin (Nitrostat) 0.4 mg PRN Q5MIN PRN SL CHEST PAIN; Start 04/07/21 at 10:45; Stop 04/08/21 at 10:44; Status DC Amiodarone HCl 150 mg/Dextrose 103 ml @ 600 mls/hr 1X PRN PRN IV FOR VENTRICULAR TACHYCARDIA; Start 04/07/21 at 10:45; Stop 04/08/21 at 10:44; Status DC Lidocaine HCl (Lidocaine HCl 2% Abboject) 100 mg 1X PRN PRN IV FOR VENTRICULAR TACHYCARDIA; Start 04/07/21 at 10:45 Atropine Sulfate (ATROPINE 0.5mg SYRINGE) 0.5 mg PRN 1X PRN IV BRADYCARDIA; Start 04/07/21 at 10:45 Milrinone Lactate (Primacor) 10 mg 1X ONCE IV Last administered on 04/07/21at 11:50; Start 04/07/21 at 10:45; Stop 04/07/21 at 10:53; Status DC Milrinone Lactate/ Dextrose 100 ml @ 3.938 mls/ hr CONT PRN IV PER PROTOCOL Last administered on 04/08/21at 05:35; Start 04/07/21 at 10:45; Stop 04/08/21 at 10:44; Status DC Hydralazine HCl (Apresoline Inj) 20 mg 1X ONCE IVP Last administered on 04/07/21at 12:00; Start 04/07/21 at 12:00; Stop 04/07/21 at 12:01; Status DC Hydralazine HCl (Apresoline Inj) 20 mg STK-MED ONCE .ROUTE ; Start 04/07/21 at 11:58; Stop 04/07/21 at 11:59; Status DC Hydralazine HCl (Apresoline Inj) 10 mg PRN Q4HRS PRN IVP ELEVATED BP, SEE COMMENTS Last administered on 04/07/21at 17:12; Start 04/07/21 at 16:15; Stop 04/07/21 at 18:39; Status DC Hydralazine HCl (Apresoline Inj) 20 mg PRN Q4HRS PRN IVP ELEVATED BP, SEE COMMENTS Last administered on 04/09/21at 11:17; Start 04/07/21 at 18:45 Furosemide (Lasix) 40 mg DAILY IVP Last administered on 04/09/21at 08:37; Start 04/08/21 at 09:00 Lisinopril (Prinivil) 40 mg DAILY PO Last administered on 04/09/21at 08:39; Start 04/08/21 at 11:30 Furosemide (Lasix) 40 mg 1X ONCE IVP Last administered on 04/08/21at 16:15; Start 04/08/21 at 15:00; Stop 04/08/21 at 15:01; Status DC Warfarin Sodium (Coumadin Per Pharmacy) 1 each PRN DAILY PRN MC SEE COMMENTS Last administered on 04/09/21at 07:32; Start 04/08/21 at 11:45 Warfarin Sodium (Coumadin) 6 mg 1X WARF ONCE PO Last administered on 04/08/21at 16:14; Start 04/08/21 at 16:00; Stop 04/08/21 at 16:01; Status DC Warfarin Sodium (Coumadin) 6 mg 1X WARF ONCE PO ; Start 04/09/21 at 16:00; Stop 04/09/21 at 16:01 Active Scripts Active Reported Warfarin Sodium 6 Mg Tablet 6 Mg PO DAILY Lovastatin 40 Mg Tablet 40 Mg PO HS Glyburide 5 Mg Tablet 2 Tab PO BID Coq-10 (Ubidecarenone) 100 Mg Capsule 200 Mg PO DAILY Metformin Hcl 1,000 Mg Tablet 1,000 Mg PO BIDWMEALS Cardizem Cd (Diltiazem Hcl) 120 Mg Cap.er.24h 120 Mg PO BID Digoxin 250 Mcg Tablet 250 Mcg PO DAILY Losartan Potassium 100 Mg Tablet 100 Mg PO DAILY Magnesium Oxide 400 Mg Tablet 400 Mg PO DAILY Fish Oil Ec 1,200 Mg Softgel ([place]-3S/Dha/Epa/Fish Oil) 1 Each Capsule. 1 Cap PO DAILY 30 Days Preservision Areds Softgel (Vit A/Vit C/Vit E/Zinc/Copper) 1 Each Capsule 1 Cap PO BID 30 Days Vitamin D3 (Cholecalciferol (Vitamin D3)) 1,250 Mcg Capsule 1,250 Mcg PO DAILY Diclofenac Sodium 75 Mg Tablet. 1 Tab PO BID Furosemide 20 Mg Tablet 20 Mg PO DAILY Klor-Con M10 (Potassium Chloride) 10 Meq Tab.er.prt 10 Meq PO DAILY Gabapentin (Gabapentin) 100 Mg Capsule 100 Mg PO DAILY Vitals/I & O Vital Sign - Last 24 Hours 04/08/21 04/08/21 04/08/21 04/08/21 15:00 16:12 19:13 19:43 Temp 98.0 97.1 98.0 97.1 Pulse 72 66 66 Resp 16 21 B/P (MAP) 183/71 (108) 202/81 (121) 187/73 (111) Pulse Ox 96 94 O2 Delivery Room Air Room Air 04/08/21 04/08/21 04/08/21 04/09/21 20:00 21:28 22:45 03:00 Temp 97.6 97.6 97.6 97.6 Pulse 66 62 65 Resp 21 20 B/P (MAP) 187/73 198/73 (114) 199/75 (116) Pulse Ox 95 96 O2 Delivery Room Air Room Air Room Air 04/09/21 04/09/21 04/09/21 04/09/21 03:20 07:00 08:00 08:38 Temp 98.3 98.3 Pulse 69 77 86 Resp 18 B/P (MAP) 199/75 203/72 (115) 203/72 Pulse Ox 94 O2 Delivery Room Air Room Air O2 Flow Rate 2.0 04/09/21 04/09/21 04/09/21 04/09/21 08:39 11:10 11:17 11:59 Temp 98.6 98.6 Pulse 69 64 65 74 Resp 18 B/P (MAP) 199/75 201/77 (118) 201/77 182/78 (112) Pulse Ox 95 O2 Delivery Room Air Intake and Output 04/08/21 04/08/21 04/09/21 15:00 23:00 07:00 Intake Total 340 ml 180 ml 600 ml Output Total 850 ml 550 ml Balance 340 ml -670 ml 50 ml Justifications for Admission Other Justification MAXIM PONCE MD Apr 09, 2021 13:17
[2021-04-09] MEDS ORDERED: WARFARIN 3 MG TABLET. PO ONE (16:00)
[2021-04-10] VITALS (7 sets, daily range): BP systolic 147–199; BP diastolic 50–87
[2021-04-10 04:11] LABS: PROTHROMBIN TIME PATIENT 17.4 SEC (11.7-14.0)
[2021-04-10 04:17] LABS: CALCIUM 8.4 mg/dL (8.5-10.1); GFR 53.6; MAGNESIUM 1.8 mg/dL (1.8-2.4); POTASSIUM 3.3 mmol/L (3.5-5.1)
[2021-04-10] MEDS: ASPIRIN ENTERIC COATED 81 MG TABLET.DR. PO SCH (08:00)
[2021-04-10] MEDS: METOPROLOL SUCC 24HR ER 25 MG TAB.ER.24H. PO SCH ×2 (09:00→09:15)
[2021-04-10] MEDS: FUROSEMIDE 40 MG/4 ML VIAL. IVP SCH ×2 (09:08→09:14)
[2021-04-10] MEDS: LISINOPRIL 20 MG TABLET PO SCH ×2 (09:10→09:15)
[2021-04-10] MEDS: SPIRONOLACTONE 25 MG TABLET PO SCH ×2 (09:11→09:15)
[2021-04-10] MEDS: hydrALAZINE 20 MG/ML VIAL. IVP PRN (11:26)
--- NOTE | 2021-04-10 12:36 | NUR ---
Pharmacy Warfarin Dosing Note S:Pharmacy consulted to assist with anticoagulation therapy started with target INR: 2 -3 O:POLO VIDAL is a 80 year old F with Atrial Fibrillation LABS: Last INR: 1.4 Last HGB: 10.7 Last HCT: 33 Last PLT: 146 Last dose of 6 mg given on 04/09/21 at 1608 Previous Regimen: warfarin 6 mg daily Drug Interaction Changes: None Ongoing Drug Interactions: n/a A:INR of 1.4 is below desired range. Target range for this patient is: 2 -3 P: Warfarin dose: 6 mg Today at 1600 Bridge Therapy: None Next INR due 04/11/21 Pharmacy anticoagulation service will continue to follow. ROBERT SILVA [facility], 04/10/21 1980
[2021-04-10] MEDS ORDERED: WARFARIN 3 MG TABLET. PO ONE (16:00)
[2021-04-10] MEDS ORDERED: POTASSIUM CHLORIDE 20 MEQ TABLET.ER. PO ONE (16:00)
--- NOTE | 2021-04-10 16:58 | PDOC ---
PROGRESS NOTES Date of Service DATE: 04/10/21 TIME: 16:56 Subjective Subjective Patient seen and examined She looks and feels better today. Objective Objective Vital Signs Date Time Temp Pulse Resp B/P (MAP) Pulse Ox O2 Delivery O2 Flow Rate FiO2 04/10/21 15:00 98.3 64 20 157/71 (99) 95 Room Air 98.3 04/10/21 08:00 2.0 Intake and Output 04/10/21 07:00 Intake Total 100 ml Output Total 2200 ml Balance -2100 ml Intake Oral 100 ml Output Urine Total 2200 ml Physical Exam Abdomen: Normal bowel sounds Heart: Regular rate General: mild distress Lungs: Other (Minimally decreased breath sounds) Assessment Assessment Acute on chronic systolic and diastolic heart failure; the patient continues to improve. Increase activity as tolerated. Three-vessel noncritical coronary artery disease with negative IFR of the left m ain. Continue medical treatment. Chronic AFIB/LBBB: rate controlled. Coumadin restarted. HTN. Blood pressure still elevated. We will continue on Norvasc and monitor. CKD3. Monitoring lab. Potassium decreased at 3.3 today with a creatinine of 1.0. Will supplement potassium. 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 Off milrinone. Comment Review of Relevant I have reviewed the following items taylor (where applicable) has been applied. Labs Laboratory Tests Test 04/08/21 20:34 04/09/21 04:00 04/09/21 07:37 04/09/21 11:40 Glucose (Fingerstick) 173 mg/dL (70-99) 143 mg/dL (70-99) 179 mg/dL (70-99) Prothrombin Time 16.4 SEC (11.7-14.0) Prothromb Time International Ratio 1.3 (0.8-1.1) Sodium Level 138 mmol/L (136-145) Potassium Level 3.3 mmol/L (3.5-5.1) Chloride Level 102 mmol/L (98-107) Carbon Dioxide Level 27 mmol/L (21-32) Anion Gap 9 (6-14) Blood Urea Nitrogen 21 mg/dL (7-20) Creatinine 0.9 mg/dL (0.6-1.0) Estimated GFR (Cockcroft-Gault) 60.6 Glucose Level 130 mg/dL (70-99) Calcium Level 9.0 mg/dL (8.5-10.1) Magnesium Level 1.7 mg/dL (1.8-2.4) Test 04/09/21 16:23 04/09/21 20:30 04/10/21 03:40 04/10/21 07:47 Glucose (Fingerstick) 176 mg/dL (70-99) 195 mg/dL (70-99) 115 mg/dL (70-99) Prothrombin Time 17.4 SEC (11.7-14.0) Prothromb Time International Ratio 1.4 (0.8-1.1) Sodium Level 136 mmol/L (136-145) Potassium Level 3.3 mmol/L (3.5-5.1) Chloride Level 101 mmol/L (98-107) Carbon Dioxide Level 27 mmol/L (21-32) Anion Gap 8 (6-14) Blood Urea Nitrogen 21 mg/dL (7-20) Creatinine 1.0 mg/dL (0.6-1.0) Estimated GFR (Cockcroft-Gault) 53.6 Glucose Level 140 mg/dL (70-99) Calcium Level 8.4 mg/dL (8.5-10.1) Magnesium Level 1.8 mg/dL (1.8-2.4) Test 04/10/21 12:14 04/10/21 16:52 Glucose (Fingerstick) 132 mg/dL (70-99) 137 mg/dL (70-99) Laboratory Tests Test 04/09/21 20:30 04/10/21 03:40 04/10/21 07:47 04/10/21 12:14 Glucose (Fingerstick) 195 mg/dL (70-99) 115 mg/dL (70-99) 132 mg/dL (70-99) Prothrombin Time 17.4 SEC (11.7-14.0) Prothromb Time International Ratio 1.4 (0.8-1.1) Sodium Level 136 mmol/L (136-145) Potassium Level 3.3 mmol/L (3.5-5.1) Chloride Level 101 mmol/L (98-107) Carbon Dioxide Level 27 mmol/L (21-32) Anion Gap 8 (6-14) Blood Urea Nitrogen 21 mg/dL (7-20) Creatinine 1.0 mg/dL (0.6-1.0) Estimated GFR (Cockcroft-Gault) 53.6 Glucose Level 140 mg/dL (70-99) Calcium Level 8.4 mg/dL (8.5-10.1) Magnesium Level 1.8 mg/dL (1.8-2.4) Test 04/10/21 16:52 Glucose (Fingerstick) 137 mg/dL (70-99) Medications Current Medications Iodixanol (Visipaque 320) 100 ml STK-MED ONCE .ROUTE ; Start 04/07/21 at 07:47; Stop 04/07/21 at 07:47; Status DC Lidocaine HCl (Lidocaine 1% 20ml Vial) 20 ml STK-MED ONCE .ROUTE ; Start 04/07/21 at 07:47; Stop 04/07/21 at 07:47; Status DC Heparin Sodium/ Sodium Chloride 1,500 ml @ As Directed STK-MED ONCE .ROUTE ; Start 04/07/21 at 07:47; Stop 04/07/21 at 07:48; Status DC Fentanyl Citrate (Fentanyl 2ml Vial) 100 mcg STK-MED ONCE .ROUTE ; Start 04/07/21 at 08:08; Stop 04/07/21 at 08:08; Status DC Midazolam HCl (Versed) 2 mg STK-MED ONCE .ROUTE ; Start 04/07/21 at 08:08; Stop 04/07/21 at 08:08; Status DC Heparin Sodium (Porcine) (Heparin Sodium) 10,000 unit STK-MED ONCE .ROUTE ; Start 04/07/21 at 08:08; Stop 04/07/21 at 08:08; Status DC Verapamil HCl (Verapamil) 5 mg STK-MED ONCE .ROUTE ; Start 04/07/21 at 08:08; Stop 04/07/21 at 08:08; Status DC Nitroglycerin (Nitroglycerin) 200 mcg STK-MED ONCE .ROUTE ; Start 04/07/21 at 08:08; Stop 04/07/21 at 08:08; Status DC Nitroglycerin (Nitroglycerin) 200 mcg 1X ONCE IART Last administered on 04/07/21at 09:10; Start 04/07/21 at 08:15; Stop 04/07/21 at 08:18; Status DC Verapamil HCl (Verapamil) 2.5 mg 1X ONCE IART Last administered on 04/07/21at 09:10; Start 04/07/21 at 08:15; Stop 04/07/21 at 08:18; Status DC Heparin Sodium (Porcine) (Heparin Sodium) 2,500 unit 1X ONCE IART Last administered on 04/07/21at 09:10; Start 04/07/21 at 08:15; Stop 04/07/21 at 08:18; Status DC Heparin Sodium/ Sodium Chloride (HEPARIN for ARTERIAL LINE FLUSH) 1,000 unit 1X ONCE IART Last administered on 04/07/21at 08:15; Start 04/07/21 at 08:15; Stop 04/07/21 at 08:18; Status DC Heparin Sodium/ Sodium Chloride (HEPARIN for ARTERIAL LINE FLUSH) 1,000 unit 1X ONCE IART Last administered on 04/07/21at 08:15; Start 04/07/21 at 08:15; Stop 04/07/21 at 08:18; Status DC Midazolam HCl (Versed) 2 mg 1X ONCE IV Last administered on 04/07/21at 09:02; Start 04/07/21 at 08:15; Stop 04/07/21 at 08:18; Status DC Fentanyl Citrate (Fentanyl 2ml Vial) 100 mcg 1X ONCE IV Last administered on 04/07/21at 09:02; Start 04/07/21 at 08:15; Stop 04/07/21 at 08:18; Status DC Iodixanol (Visipaque 320) 100 ml 1X ONCE IART Last administered on 04/07/21at 09:43; Start 04/07/21 at 08:15; Stop 04/07/21 at 08:18; Status DC Lidocaine HCl (Lidocaine 1% 20ml Vial) 20 ml 1X ONCE INJ Last administered on 04/07/21at 09:22; Start 04/07/21 at 08:15; Stop 04/07/21 at 08:18; Status DC Lidocaine HCl (Xylocaine-Mpf 1% 2ml Vial) 2 ml 1X ONCE INJ Last administered on 04/07/21at 09:08; Start 04/07/21 at 08:15; Stop 04/07/21 at 08:18; Status DC Info (CONTRAST GIVEN -- Rx MONITORING) 1 each PRN DAILY PRN MC SEE COMMENTS; Start 04/07/21 at 08:30; Stop 04/09/21 at 08:29; Status DC Nitroglycerin (Nitroglycerin) 200 mcg STK-MED ONCE .ROUTE ; Start 04/07/21 at 09:30; Stop 04/07/21 at 09:30; Status DC Furosemide (Lasix) 100 mg STK-MED ONCE .ROUTE ; Start 04/07/21 at 09:55; Stop 04/07/21 at 09:55; Status DC Labetalol HCl (Normodyne Iv Push) 20 mg STK-MED ONCE IVP ; Start 04/07/21 at 09:55; Stop 04/07/21 at 09:55; Status DC Labetalol HCl (Normodyne Iv Push) 20 mg 1X ONCE IVP Last administered on 04/07/21at 10:00; Start 04/07/21 at 10:00; Stop 04/07/21 at 10:07; Status DC Furosemide (Lasix) 40 mg 1X ONCE IVP Last administered on 04/07/21at 10:30; Start 04/07/21 at 10:00; Stop 04/07/21 at 10:07; Status DC Sodium Chloride (Normal Saline Flush) 3 ml QSHIFT PRN IV AFTER MEDS AND BLOOD DRAWS; Start 04/07/21 at 10:45; Stop 04/08/21 at 10:44; Status DC Aspirin (Ecotrin) 81 mg DAILYWBKFT PO Last administered on 04/09/21at 08:38; Start 04/08/21 at 08:00 Metoprolol Succinate (Toprol Xl) 25 mg DAILY PO Last administered on 04/10/21at 09:15; Start 04/08/21 at 09:00 Spironolactone (Aldactone) 25 mg DAILY PO Last administered on 04/10/21at 09:15; Start 04/08/21 at 09:00 Atorvastatin Calcium (Lipitor) 40 mg QHS PO Last administered on 04/07/21at 21:18; Start 04/07/21 at 21:00; Stop 04/08/21 at 20:59; Status DC Nitroglycerin (Nitrostat) 0.4 mg PRN Q5MIN PRN SL CHEST PAIN; Start 04/07/21 at 10:45; Stop 04/08/21 at 10:44; Status DC Amiodarone HCl 150 mg/Dextrose 103 ml @ 600 mls/hr 1X PRN PRN IV FOR VENTRICULAR TACHYCARDIA; Start 04/07/21 at 10:45; Stop 04/08/21 at 10:44; Status DC Lidocaine HCl (Lidocaine HCl 2% Abboject) 100 mg 1X PRN PRN IV FOR VENTRICULAR TACHYCARDIA; Start 04/07/21 at 10:45 Atropine Sulfate (ATROPINE 0.5mg SYRINGE) 0.5 mg PRN 1X PRN IV BRADYCARDIA; Start 04/07/21 at 10:45 Milrinone Lactate (Primacor) 10 mg 1X ONCE IV Last administered on 04/07/21at 11:50; Start 04/07/21 at 10:45; Stop 04/07/21 at 10:53; Status DC Milrinone Lactate/ Dextrose 100 ml @ 3.938 mls/ hr CONT PRN IV PER PROTOCOL Last administered on 04/08/21at 05:35; Start 04/07/21 at 10:45; Stop 04/08/21 at 10:44; Status DC Hydralazine HCl (Apresoline Inj) 20 mg 1X ONCE IVP Last administered on 04/07/21at 12:00; Start 04/07/21 at 12:00; Stop 04/07/21 at 12:01; Status DC Hydralazine HCl (Apresoline Inj) 20 mg STK-MED ONCE .ROUTE ; Start 04/07/21 at 11:58; Stop 04/07/21 at 11:59; Status DC Hydralazine HCl (Apresoline Inj) 10 mg PRN Q4HRS PRN IVP ELEVATED BP, SEE COMMENTS Last administered on 04/07/21at 17:12; Start 04/07/21 at 16:15; Stop 04/07/21 at 18:39; Status DC Hydralazine HCl (Apresoline Inj) 20 mg PRN Q4HRS PRN IVP ELEVATED BP, SEE COMMENTS Last administered on 04/10/21at 11:26; Start 04/07/21 at 18:45 Furosemide (Lasix) 40 mg DAILY IVP Last administered on 04/10/21at 09:14; Start 04/08/21 at 09:00 Lisinopril (Prinivil) 40 mg DAILY PO Last administered on 04/10/21at 09:15; Start 04/08/21 at 11:30 Furosemide (Lasix) 40 mg 1X ONCE IVP Last administered on 04/08/21at 16:15; Start 04/08/21 at 15:00; Stop 04/08/21 at 15:01; Status DC Warfarin Sodium (Coumadin Per Pharmacy) 1 each PRN DAILY PRN MC SEE COMMENTS Last administered on 04/10/21at 12:36; Start 04/08/21 at 11:45 Warfarin Sodium (Coumadin) 6 mg 1X WARF ONCE PO Last administered on 04/08/21at 16:14; Start 04/08/21 at 16:00; Stop 04/08/21 at 16:01; Status DC Warfarin Sodium (Coumadin) 6 mg 1X WARF ONCE PO Last administered on 04/09/21at 16:08; Start 04/09/21 at 16:00; Stop 04/09/21 at 16:01; Status DC Amlodipine Besylate (Norvasc) 5 mg DAILY PO Last administered on 04/10/21at 09:15; Start 04/09/21 at 13:30 Warfarin Sodium (Coumadin) 6 mg 1X WARF ONCE PO Last administered on 04/10/21at 16:08; Start 04/10/21 at 16:00; Stop 04/10/21 at 16:01; Status DC Potassium Chloride (Klor-Con) 40 meq 1X ONCE PO Last administered on 04/10/21at 16:08; Start 04/10/21 at 16:00; Stop 04/10/21 at 16:01; Status DC Active Scripts Active Reported Warfarin Sodium 6 Mg Tablet 6 Mg PO DAILY Lovastatin 40 Mg Tablet 40 Mg PO HS Glyburide 5 Mg Tablet 2 Tab PO BID Coq-10 (Ubidecarenone) 100 Mg Capsule 200 Mg PO DAILY Metformin Hcl 1,000 Mg Tablet 1,000 Mg PO BIDWMEALS Cardizem Cd (Diltiazem Hcl) 120 Mg Cap.er.24h 120 Mg PO BID Digoxin 250 Mcg Tablet 250 Mcg PO DAILY Losartan Potassium 100 Mg Tablet 100 Mg PO DAILY Magnesium Oxide 400 Mg Tablet 400 Mg PO DAILY Fish Oil Ec 1,200 Mg Softgel (Paris-3S/Dha/Epa/Fish Oil) 1 Each Capsule. 1 Cap PO DAILY 30 Days Preservision Areds Softgel (Vit A/Vit C/Vit E/Zinc/Copper) 1 Each Capsule 1 Cap PO BID 30 Days Vitamin D3 (Cholecalciferol (Vitamin D3)) 1,250 Mcg Capsule 1,250 Mcg PO DAILY Diclofenac Sodium 75 Mg Tablet.dr 1 Tab PO BID Furosemide 20 Mg Tablet 20 Mg PO DAILY Klor-Con M10 (Potassium Chloride) 10 Meq Tab.er.prt 10 Meq PO DAILY Gabapentin (Gabapentin) 100 Mg Capsule 100 Mg PO DAILY Vitals/I & O Vital Sign - Last 24 Hours 04/09/21 04/09/21 04/09/21 04/10/21 18:58 19:35 23:03 03:35 Temp 97.5 97.4 97.7 97.5 97.4 97.7 Pulse 67 72 72 Resp 20 20 22 B/P (MAP) 161/53 (89) 148/59 (88) 153/50 (84) Pulse Ox 94 92 94 O2 Delivery Room Air Room Air Room Air Room Air 04/10/21 04/10/21 04/10/21 04/10/21 07:00 08:00 09:00 09:00 Temp 98.5 98.5 Pulse 70 72 72 Resp 20 B/P (MAP) 199/77 (117) 153/50 153/50 Pulse Ox 93 O2 Delivery Room Air Room Air O2 Flow Rate 2.0 04/10/21 04/10/21 04/10/21 04/10/21 09:10 09:15 09:15 09:15 Pulse 69 69 69 69 B/P (MAP) 199/77 199/77 199/77 199/77 04/10/21 04/10/21 04/10/21 04/10/21 10:45 11:26 11:55 15:00 Temp 97.8 98.3 97.8 98.3 Pulse 62 57 72 64 Resp 20 20 B/P (MAP) 180/87 (118) 180/87 153/72 (99) 157/71 (99) Pulse Ox 95 95 O2 Delivery Room Air Room Air Intake and Output 04/09/21 04/09/21 04/10/21 15:00 23:00 07:00 Intake Total 100 ml Output Total 550 ml 1200 ml 450 ml Balance -550 ml -1200 ml -350 ml Justifications for Admission Other Justification MAXIM PONCE MD Apr 10, 2021 16:58
[2021-04-11 03:00] VITALS: BP 140/51
[2021-04-11 04:16] LABS: PROTHROMBIN TIME PATIENT 17.4 SEC (11.7-14.0)
[2021-04-11 04:18] LABS: CALCIUM 8.2 mg/dL (8.5-10.1); CREATININE 0.9 mg/dL (0.6-1.0); GFR 60.6; POTASSIUM 3.8 mmol/L (3.5-5.1)
[2021-04-11 07:00] VITALS: BP 173/85
[2021-04-11] MEDS: ASPIRIN ENTERIC COATED 81 MG TABLET.DR. PO SCH (09:45)
[2021-04-11 11:00] VITALS: BP 186/81
--- NOTE | 2021-04-11 11:21 | PDOC ---
CARDIO Progress Notes Date and Time Date of Service 04/11/21 Time of Evaluation 1100 Subjective Subjective: No Chest Pain, No shortness of breath, No Palpitations, No Dizziness Vitals Vitals Vital Signs Date Time Temp Pulse Resp B/P (MAP) Pulse Ox O2 Delivery O2 Flow Rate FiO2 04/11/21 07:00 98.5 67 18 173/85 (114) 94 Room Air 98.5 04/10/21 08:00 2.0 Weight Weight [ ] Input and Output Intake and Output Intake and Output 04/11/21 07:00 Intake Total 2030 ml Output Total 2550 ml Balance -520 ml Intake Oral 2030 ml Output Urine Total 2550 ml Laboratory Labs Laboratory Tests Test 04/10/21 12:14 04/10/21 16:52 04/10/21 19:54 04/11/21 03:30 Glucose (Fingerstick) 132 mg/dL (70-99) 137 mg/dL (70-99) 213 mg/dL (70-99) Prothrombin Time 17.4 SEC (11.7-14.0) Prothromb Time International Ratio 1.4 (0.8-1.1) Sodium Level 134 mmol/L (136-145) Potassium Level 3.8 mmol/L (3.5-5.1) Chloride Level 101 mmol/L (98-107) Carbon Dioxide Level 28 mmol/L (21-32) Anion Gap 5 (6-14) Blood Urea Nitrogen 26 mg/dL (7-20) Creatinine 0.9 mg/dL (0.6-1.0) Estimated GFR (Cockcroft-Gault) 60.6 Glucose Level 135 mg/dL (70-99) Calcium Level 8.2 mg/dL (8.5-10.1) Test 04/11/21 08:23 Glucose (Fingerstick) 163 mg/dL (70-99) Physical Exam HEENT: Neck Supple W Full Motion Chest: Symmetric LUNGS: Other (diminished bases) Heart: irregularly irregular (AFIB) Abdomen: Soft N/T Extremities: No Calf Tenderness, Other (1+ bilateral LE edema) Neurology: alert, oriented, follow commands Assessment Assessment 1. Acute on chronic systolic and diastolic heart failure; s/p IV diuresis. appears compensated 2. 3-V CAD; noncritical with negative IFR of the left main. 3. Chronic AFIB/LBBB: rate controlled. warfarin therapy for stroke prophylaxis. INR 1.4 4. HTN; labile 5. CKD 6. Right-sided heart failure with severe pulmonary hypertension, mean PA pressure of 58 7. NICM; EF at 35%. Off milrinone. Recommendations HF optimization with Toprol, lisinopril, spironolactone, and Lasix. Convert Lasix to oral. Metoprolol for HF control Warfarin for stroke prophylaxis Outpatient referral to [facility] for pulmHTN Follow up in our office with Hannah martinez scheduled Justicifation of Admission Dx: Justifications for Admission: Justification of Admission Dx: Yes CHF: Hemodynamic Instability LIAN JONES APRN Apr 11, 2021 11:21
[2021-04-11] MEDS ORDERED: FUROSEMIDE 40 MG/4 ML VIAL. IVP ONE (12:00)
[2021-04-11] MEDS ORDERED: SPIRONOLACTONE 25 MG TABLET PO ONE (12:00)
[2021-04-11] MEDS ORDERED: LISINOPRIL 20 MG TABLET PO ONE (12:00)
[2021-04-11] MEDS ORDERED: METOPROLOL SUCC 24HR ER 25 MG TAB.ER.24H. PO ONE (12:00)
--- NOTE | 2021-04-11 13:27 | NUR ---
SS following for discharge planning. SS reviewed pt chart and discussed with pt RN. Pt is from home alone and is currently on room air. Cardiology following. Pt on IV Lasix. Pt had heart cath on 04/07/2021. COVID19 negative. PT recommended home with home healthcare. [facility] ; fax [phone]. SS will continue to follow for discharge planning.
[2021-04-11] MEDS ORDERED: SPIR25TA PO (14:39)
[2021-04-11] MEDS ORDERED: ASPI-886 PO (14:39)
[2021-04-11] MEDS ORDERED: FURO40TA4 PO (14:39)
[2021-04-11] MEDS ORDERED: METO-239 PO (14:39)
[2021-04-11] MEDS ORDERED: AMLO-186 PO (14:39)
[2021-04-11] MEDS ORDERED: LISI-130 PO (14:39)
--- NOTE | 2021-04-11 14:43 | DISCH ---
DISCHARGE INSTRUCTIONS Condition on Discharge Condition on Discharge: Stable Activity After Discharge Activity Instructions for Disc: Activity as tolerated Weight Bearing Status after Di: As tolerated Diet after Discharge Diet after Discharge: Cardiac, Diabetic No Calorie Level Checks after Discharge Checks after discharge: Check blood press - daily Contacting the [facility] after DC Call your doctor for: If your condition worsens Treatment/Equipment after DC Comment: LIAN Covarrubias APRN Apr 11, 2021 14:43
--- NOTE | 2021-04-11 14:52 | PDOC3 ---
Discharge Summary Visit Information Date of Admission: Apr 07, 2021 Date of Discharge: Apr 11, 2021 Admitting Diagnosis Comment: 1. Cardiomyopathy 2. Systolic CHF 3. AFIB 4. Hypertension 5. CKD 6. Obesity Final Diagnosis 1. Acute on chronic systolic and diastolic heart failure 2. 3-V CAD; noncritical with negative IFR of the left main. 3. Chronic AFIB/LBBB 4. Hypertension 5. CKD3 6. Right-sided heart failure with severe pulmonary hypertension 7. NICM; EF at 35%. 8. Obesity Brief Hospital Course Allergies Allergies Coded Allergies Type Severity Reaction Last Updated Verified No Known Drug Allergies 04/07/21 No Vital Signs Vital Signs Date Time Temp Pulse Resp B/P (MAP) Pulse Ox O2 Delivery O2 Flow Rate FiO2 04/11/21 11:41 67 173/85 04/11/21 11:00 98.2 18 97 Room Air 98.2 04/10/21 08:00 2.0 Lab Results Laboratory Tests Test 04/09/21 16:23 04/09/21 20:30 04/10/21 03:40 04/10/21 07:47 Glucose (Fingerstick) 176 mg/dL (70-99) 195 mg/dL (70-99) 115 mg/dL (70-99) Prothrombin Time 17.4 SEC (11.7-14.0) Prothromb Time International Ratio 1.4 (0.8-1.1) Sodium Level 136 mmol/L (136-145) Potassium Level 3.3 mmol/L (3.5-5.1) Chloride Level 101 mmol/L (98-107) Carbon Dioxide Level 27 mmol/L (21-32) Anion Gap 8 (6-14) Blood Urea Nitrogen 21 mg/dL (7-20) Creatinine 1.0 mg/dL (0.6-1.0) Estimated GFR (Cockcroft-Gault) 53.6 Glucose Level 140 mg/dL (70-99) Calcium Level 8.4 mg/dL (8.5-10.1) Magnesium Level 1.8 mg/dL (1.8-2.4) Test 04/10/21 12:14 04/10/21 16:52 04/10/21 19:54 04/11/21 03:30 Glucose (Fingerstick) 132 mg/dL (70-99) 137 mg/dL (70-99) 213 mg/dL (70-99) Prothrombin Time 17.4 SEC (11.7-14.0) Prothromb Time International Ratio 1.4 (0.8-1.1) Sodium Level 134 mmol/L (136-145) Potassium Level 3.8 mmol/L (3.5-5.1) Chloride Level 101 mmol/L (98-107) Carbon Dioxide Level 28 mmol/L (21-32) Anion Gap 5 (6-14) Blood Urea Nitrogen 26 mg/dL (7-20) Creatinine 0.9 mg/dL (0.6-1.0) Estimated GFR (Cockcroft-Gault) 60.6 Glucose Level 135 mg/dL (70-99) Calcium Level 8.2 mg/dL (8.5-10.1) Test 04/11/21 08:23 04/11/21 12:20 Glucose (Fingerstick) 163 mg/dL (70-99) 154 mg/dL (70-99) Laboratory Tests Test 04/10/21 16:52 04/10/21 19:54 04/11/21 03:30 04/11/21 08:23 Glucose (Fingerstick) 137 mg/dL (70-99) 213 mg/dL (70-99) 163 mg/dL (70-99) Prothrombin Time 17.4 SEC (11.7-14.0) Prothromb Time International Ratio 1.4 (0.8-1.1) Sodium Level 134 mmol/L (136-145) Potassium Level 3.8 mmol/L (3.5-5.1) Chloride Level 101 mmol/L (98-107) Carbon Dioxide Level 28 mmol/L (21-32) Anion Gap 5 (6-14) Blood Urea Nitrogen 26 mg/dL (7-20) Creatinine 0.9 mg/dL (0.6-1.0) Estimated GFR (Cockcroft-Gault) 60.6 Glucose Level 135 mg/dL (70-99) Calcium Level 8.2 mg/dL (8.5-10.1) Test 04/11/21 12:20 Glucose (Fingerstick) 154 mg/dL (70-99) Brief Hospital Course Ms. Waters is a 80 old female who presented with for right and left heart catheterization secondary to new finding of systolic heart failure with an EF of 35%. Right heart cath notable for biventricular pressure overload, severe pulmonary hypertension with mean PAP 58 mmHg, and low cardiac output with an index of 1.9. Left heart cath showed three-vessel noncritical coronary artery disease with left main involvement. IFR of the left main and LAD stenosis was negative. Patient was placed on goal directed HF therapy and volume status was optimized IV diuresis and inotropic support with milrinone therapy. We were unable to start Entresto as patient does not have part D Medicare coverage. Outpatient referral has been placed to [facility] for pulmonary hypertension. We will consider [facility] depending on improvement with medical therapy. She will follow up in our office with Dr. Young as scheduled. Assessment Assessment Late entry for 04/11/21 Patient seen and examined. Agree with above nurse practitioner note. Patient is doing well. She is on appropriate medical therapy. Labs are stable. She has lost approximately 12 pounds. We will plan for close follow-up with [facility] pulmonary hypertension clinic with Dr. Medrano. Discharge Information Condition at Discharge: Improved Disposition/Orders: D/C to Home Scheduled Amlodipine Besylate (Amlodipine Besylate) 5 Mg Tablet, 10 MG PO DAILY for blood pressure for 30 Days, #60 Ref 2 Prescribed by: LIAN JONES APRN on 04/11/21 1439 Aspirin (Aspirin Ec) 81 Mg Tablet.dr, 81 MG PO DAILYWBKFT for heart for 30 Days, #30 Ref 2 Prescribed by: LIAN JONES APRN on 04/11/21 1439 Cholecalciferol (Vitamin D3) (Vitamin D3) 1,250 Mcg Capsule, 1,250 MCG PO DAILY for , (Reported) Entered as Reported by: LANDON OLIVIER on 04/07/21754 Last Action: New Order on 04/07/21754 by LANDON OLIVIER Furosemide (Furosemide) 40 Mg Tablet, 1 TAB PO DAILY for CHF , #30 Ref 2 Prescribed by: LIAN JONES APRN on 04/11/21 1439 Gabapentin (Gabapentin ) 100 Mg Capsule, 100 MG PO DAILY for NEUROGENIC PAIN, (Reported) Entered as Reported by: LANDON OLIVIER on 04/07/21754 Last Action: New Order on 04/07/21754 by LANDON OLIVIER Glyburide (Glyburide) 5 Mg Tablet, 2 TAB PO BID for , #360 Ref 3 (Reported) Entered as Reported by: LANDON OLIVIER on 04/07/21754 Last Action: New Order on 04/07/21754 by LANDON OLIVIER Lisinopril (Lisinopril) 40 Mg Tablet, 40 MG PO DAILY for blood pressure for 30 Days, #30 Ref 2 Prescribed by: LIAN JONES APRN on 04/11/21 1439 Lovastatin (Lovastatin) 40 Mg Tablet, 40 MG PO HS for , (Reported) Entered as Reported by: LANDON OLIVIER on 04/07/21754 Last Action: New Order on 04/07/21754 by LANDON OLIVIER Magnesium Oxide (Magnesium Oxide) 400 Mg Tablet, 400 MG PO DAILY for , (Reported) Entered as Reported by: LANDON OLIVIER on 04/07/21754 Last Action: New Order on 04/07/21754 by LANDON OLIVIER Metformin Hcl (Metformin Hcl) 1,000 Mg Tablet, 1,000 MG PO BIDWMEALS for , (Rep orted) Entered as Reported by: LANDON OLIVIER on 04/07/21754 Last Action: New Order on 04/07/21754 by LANDON OLIVIER Metoprolol Succinate (Metoprolol Succinate ( Xl )) 25 Mg Tab.er.24h, 25 MG PO DAILY for Heart for 30 Days, #30 Ref 2 Prescribed by: LIAN JONES APRN on 04/11/21 1439 Dexter-3S/Dha/Epa/Fish Oil (Fish Oil Ec 1,200 Mg Softgel) 1 Each Capsule.dr, 1 CAP PO DAILY for for 30 Days, #30 Ref 0 (Reported) Entered as Reported by: LANDON OLIVIER on 04/07/21754 Last Action: New Order on 04/07/21754 by LANDON OLIVIER Potassium Chloride (Klor-Con M10) 10 Meq Tab.er.prt, 10 MEQ PO DAILY for , (Reported) Entered as Reported by: LANDON OLIVIER on 04/07/21754 Last Action: New Order on 04/07/21754 by LANDON OLIVIER Spironolactone (Aldactone) 25 Mg Tablet, 25 MG PO DAILY for CHF for 30 Days, #30 Ref 2 Prescribed by: LIAN JONES APRN on 04/11/21 1439 Ubidecarenone (Coq-10) 100 Mg Capsule, 200 MG PO DAILY for , (Reported) Entered as Reported by: LANDON OLIVIER on 04/07/21754 Last Action: New Order on 04/07/21754 by LANDON OLIVIER Vit A/Vit C/Vit E/Zinc/Copper (Preservision Areds Softgel) 1 Each Capsule, 1 CAP PO BID for for 30 Days, #60 Ref 0 (Reported) Entered as Reported by: LANDON OLIVIER on 04/07/21754 Last Action: New Order on 04/07/21754 by LANDON OLIVIER Warfarin Sodium (Warfarin Sodium) 6 Mg Tablet, 6 MG PO DAILY for a-fib, #30 (Reported) Entered as Reported by: MECHE COLBERT on 04/07/211413 Last Action: New Order on 04/07/211413 by MECHE COLBERT Discontinued Medications Diclofenac Sodium (Diclofenac Sodium) 75 Mg Tablet.dr, 1 TAB PO BID for pain, #60 (Reported) Entered as Reported by: LANDON OLIVIER on 04/07/21754 Last Action: New Order on 04/07/21754 by LANDON OLIVIER Digoxin (Digoxin) 250 Mcg Tablet, 250 MCG PO DAILY for AFIB/HEART FAILURE, (Reported) Entered as Reported by: LANDON OLIVIER on 04/07/21754 Last Taken: Unknown Dose on 04/07/21 Last Action: New Order on 04/07/21754 by LANDON OLIVIER Diltiazem Hcl (Cardizem Cd) 120 Mg Cap.er.24h, 120 MG PO BID for FOR HYPERTENSION, #30 Ref 0 (Reported) Entered as Reported by: LANDON OLIVIER on 04/07/21754 Last Action: New Order on 04/07/21754 by LANDON OLIVIER Furosemide (Furosemide) 20 Mg Tablet, 20 MG PO DAILY for , (Reported) Discontinued Reason: Prescription changed Entered as Reported by: LANDON OLIVIER on 04/07/21754 Last Action: New Order on 04/07/21754 by LANDON OLIVIER Losartan Potassium (Losartan Potassium) 100 Mg Tablet, 100 MG PO DAILY for HYPERTENSION, (Reported) Entered as Reported by: LANDON OLIVIER on 04/07/21754 Last Taken: Unknown Dose on 04/07/21 Last Action: New Order on 04/07/21754 by LANDON OLIVIER Patient Instructions Patient Instructions GENERAL INSTRUCTIONS: 1. Your dressing should be removed prior to leaving the hospital. 2. It is OK to shower the day after your procedure. 3. If you received stents, be sure to carry your stent information card with you in your wallet/purse at all times. 4. Call the office immediately at [phone] if you notice any fever or if there is redness, worsening tenderness/pain, increased bruising, or drainage from the puncture site. 5. Should you have bleeding from the site, lie down immediately & put pressure on the site. The pressure should be hard enough to stop the bleeding. Have the nearest person call 911. DO NOT try to drive to the ER with active bleeding. 6. If you notice a change in color, coolness to touch, or loss of feeling in the affected extremity, come to the emergency room. Please have someone drive you or call 911 if no one is available. DO NOT drive yourself. 7. If you normally take glucophage (metformin), please do not take this medicine for 48 hours following your procedure. 8. DO NOT STOP TAKING YOUR PLAVIX OR ASPIRIN UNLESS IT IS CLEARED BY A PRICING COORDINATOR OF YOUR CORPORATE TRAFFIC MANAGER AT OUR OFFICE. 9. QUIT SMOKING: the [place], [employer], & [employer] have cessation resources available on their websites 10. Please have someone available to drive you home from the hospital as you may be limited by sedation medications given during the procedure. Femoral (Groin) access: 1. Do no lifting, pushing, pulling, bending, stooping, or recurrent stair climbing for 3 days following your procedure. 2. Once past the first 3 days, do not do any HEAVY exertion or lifting for one week following the procedure. No gym workouts, running, lifting greater than a gallon of milk, etc 3. Do not submerge in bath or pool for one week. OK to drive 3 days following your procedure, but if going long distance, do not go alone & take hourly breaks to get out of car and walk around. Radial Artery (Wrist) access: 1. No pushing, pulling, lifting, typing, or anything that requires repetitive use/movement of the affected wrist for 3 days following your procedure. 2. OK to drive the day following your procedure. (This is because of effects of sedating medications.) Call the office at [phone] for any questions or concerns. Justicifation of Admission Dx: Justifications for Admission: Justification of Admission Dx: Yes CHF: Hemodynamic Instability LIAN JONES APRN Apr 11, 2021 14:52 YESSI YOUNG MD Apr 12, 2021 10:57
[2021-04-11 15:00] VITALS: BP 181/80
[2021-04-11] MEDS ORDERED: WARFARIN 3 MG TABLET. PO ONE (16:00)
--- NOTE | 2021-04-11 19:24 | NUR ---
Discharge Note: [facility]O [facility]IDAL[facility] Discharge instructions and discharge home medications reviewed with Patient and a copy given. All questions have been answered and understanding verbalized. The following instructions and handouts were given: pulm HTN, a-fib, managing HF IV discontinued, no complications Patient discharged to home with home health All belongings taken home with patient
== END 2021-04-11 17:40 | disposition home health service (06) | DRG 286 ==
LOC: CCL 07:20 → 6 SOUTH 10:26
PROVIDERS: ADMIT Internal Medicine Cardiovascular Disease; ATTEND Internal Medicine Cardiovascular Disease
PROC: B2111ZZ Fluoroscopy of Multiple Coronary Arteries using Low Osmolar Contrast (ICD-10-PCS; principal; 2021-04-07)
PROC: 4A023N8 Measurement of Cardiac Sampling and Pressure, Bilateral, Percutaneous Approach (ICD-10-PCS; 2021-04-07)
PROC: 4A033BC Measurement of Arterial Pressure, Coronary, Percutaneous Approach (ICD-10-PCS; 2021-04-07)
DX: I13.0 Hypertensive heart and chronic kidney disease with heart failure and stage 1 through stage 4 chronic kidney disease, or unspecified chronic kidney disease (principal); I50.43 Acute on chronic combined systolic (congestive) and diastolic (congestive) heart failure; I48.20 Chronic atrial fibrillation, unspecified; E66.9 Obesity, unspecified; I16.0 Hypertensive urgency; I25.10 Atherosclerotic heart disease of native coronary artery without angina pectoris; I27.29 Other secondary pulmonary hypertension; I42.8 Other cardiomyopathies; I44.7 Left bundle-branch block, unspecified; N18.30 Chronic kidney disease, stage 3 unspecified; Z79.899 Other long term (current) drug therapy; Z68.34 Body mass index [BMI] 34.0-34.9, adult; Z79.84 Long term (current) use of oral hypoglycemic drugs; Z91.14 Patient's other noncompliance with medication regimen; Z20.822 Contact with and (suspected) exposure to COVID-19
CPT/HCPCS: 36415; 76937; 80048; 80061; 80076; 82962; 83735; 85027; 85347; 85610; 87426; 93005; 93460; 93571; 99152; 99153; C1769; C1773; C1894; J0360; J1644; J1940; J2250; J2260; J3010; J3490; Q9967; U0003; U0005; 97110-GP; 97116-GP; 97530-GP; G0378